=== PATIENT | male | born 1940 | race Hispanic/Latino ===

== ENCOUNTER 2017-02-05 05:25 | Observation (INO) | payer MEDICARE, OTHER ==
[2017-02-05 05:33] VITALS: BMI 31.0
--- NOTE | 2017-02-05 05:52 | ED PDOC ---
Arrival/HPI - General Chief Complaint: Chest Pain Time Seen by Provider: 02/05/17 05:27 Historian: Patient, Spouse - History of Present Illness Narrative History of Present Illness (Text): 02/05/17 05:44 Mr. Zheng is a 76 year old male with a past medical history significant for CAD s/p one SHAGGY placed in 2014, HTN, DM2, and Parkinson's who presents to the [facility] with a chief complaint of continuous non-radiating substernal and left sided chest pressure for 24 hours. Patient states that yesterday morning while on the exercise bike at the [facility], he suddenly felt chest pressure. Patient then stopped exercising but the pressure persisted throughout the day. When patient awoke this morning, the pressure was the worst that it has been so he decided he needed to be evaluated. Patient reports taking two Zantac with no relief. Patient denies fever, chills, headache, changes in his vision, palpitations, SOB , cough, wheezing, abdominal pain, N/V, diarrhea, constipation, burning with urination, rash or any focal weakness. PMD: [employer] Curer: Mitchell Time/Duration: 24 hours Symptom Onset: Sudden Symptom Course: Worsening Quality: Pressure Activities at Onset: Light, Significant Context: Exertion, Bicycle Past Medical History - Provider Review Nursing Documentation Reviewed: Yes - Travel History Have you recently traveled outside [place] w/in the past 3 mons?: No - Past History Past History: Non-Contributing - Infectious Disease Hx of Infectious Diseases: None - Tetanus Immunization Tetanus Immunization: Unknown - Cardiac Hx Hypertension: Yes Hx Pacemaker: No - Pulmonary Hx Respiratory Disorders: No - Neurological Hx Neurological Disorder: No Hx Paralysis: No - HEENT Hx HEENT Disorder: No - Renal Hx Renal Disorder: No - Endocrine/Metabolic Hx Endocrine Disorders: No - Hematological/Oncological Hx Blood Disorders: No Hx Blood Transfusions: No - Integumentary Hx Dermatological Disorder: No - Musculoskeletal/Rheumatological Hx Musculoskeletal Disorders: Yes - Gastrointestinal Hx Gastrointestinal Disorders: No - Genitourinary/Gynecological Hx Genitourinary Disorders: No - Psychiatric Hx Psychophysiologic Disorder: No Hx Emotional Abuse: No Hx Physical Abuse: No Hx Substance Use: No - Surgical History Hx Coronary Stent: Yes (10/2014) - Anesthesia Hx Anesthesia Reactions: No Hx Malignant Hyperthermia: No - Suicidal Assessment Feels Threatened In Home Enviroment: No Family/Social History - Physician Review Nursing Documentation Reviewed: Yes Family/Social History: No Known Family HX Smoking Status: Never Smoked Hx Alcohol Use: No Hx Substance Use: No Hx Substance Use Treatment: No Allergies/Home Meds Allergies/Adverse Reactions: Allergies No Known Allergies Allergy (Verified 02/05/17 05:32) Home Medications: Home Meds Medication Instructions Recorded Confirmed Sitagliptin Phosphate [Januvia] 100 mg PO QPM 01/19/13 02/05/17 Azlect 1 mg PO QAM 10/25/14 02/05/17 Carbidopa/Levodopa 1 tab PO TID 10/25/14 02/05/17 [Carbidopa-Levodopa 10-100 Tab] Ezetimibe/Simvastatin [Vytorin 1 tab PO QPM 10/25/14 02/05/17 10-20 mg Tablet] Furosemide [Lasix] 20 mg PO QAM 10/25/14 02/05/17 Glimepiride [amaRYL] 4 mg PO DAILY 02/05/17 02/05/17 metFORMIN [glucOPHAGE] 500 mg PO DAILY 02/05/17 02/05/17 Review of Systems - Physician Review All systems were reviewed & negative as marked: Yes - Review of Systems Constitutional: Normal. absent: Fevers, Night Sweats Eyes: Normal. absent: Vision Changes ENT: Normal Respiratory: Normal. absent: SOB, Cough, Wheezing Cardiovascular: Chest Pain (Described as non-radiating substernal chest pressure ). absent: Normal, Palpitations, Edema, Syncope Gastrointestinal: Normal. absent: Abdominal Pain, Constipation, Diarrhea, Nausea, Vomiting Genitourinary Male: Normal. absent: Dysuria Musculoskeletal: Normal. absent: Back Pain, Neck Pain Skin: Normal. absent: Rash Neurological: Normal. absent: Headache, Focal Weakness Endocrine: Normal Hemo/Lymphatic: Normal Psychiatric: Normal Physical Exam Vital Signs Reviewed: Yes Vital Signs Temp Pulse Resp BP Pulse Ox 02/05/17 07:13 98.9 F 65 17 137/83 98 02/05/17 05:33 98.4 F 70 18 166/84 H Temperature: Afebrile Blood Pressure: Hypertensive Pulse: Regular Respiratory Rate: Normal Appearance: Positive for: Well-Appearing, Non-Toxic, Comfortable Pain Distress: None Mental Status: Positive for: Alert and Oriented X 3 - Systems Exam Head: Present: Atraumatic, Normocephalic Pupils: Present: PERRL Extroacular Muscles: Present: EOMI Conjunctiva: Present: Normal Mouth: Present: Moist Mucous Membranes Neck: Present: Normal Range of Motion, Trachea Midline. No: Meningeal Signs, MIDLINE TENDERNESS, Paraspinal Tenderness, JVD, Lymphadenopathy Respiratory/Chest: Present: Clear to Auscultation, Good Air Exchange. No: Respiratory Distress, Accessory Muscle Use, Wheezes, Decreased Breath Sounds, Rales, Retracting, Rhonchi, Tachypneic, Tender to Palpation Cardiovascular: Present: Regular Rate and Rhythm, Murmurs (Grade 2 systolic murmur), Normal S1, S2, Peripheal Pulses Present. No: Irregular Rhythm, Tachycardic, Bradycardic, Rub, Gallop, Muffled Abdomen: Present: Normal Bowel Sounds. No: Tenderness, Distention, Peritoneal Signs, Rebound, Guarding Back: Present: Normal Inspection. No: CVA Tenderness, Midline Tenderness, Paraspinal Tenderness Upper Extremity: Present: Normal Inspection, Normal ROM, NORMAL PULSES, Capillary Refill < 2s. No: Cyanosis, Edema Lower Extremity: Present: Normal Inspection, NORMAL PULSES, Normal ROM, Capillary Refill < 2 s. No: Edema, CALF TENDERNESS Neurological: Present: GCS=15, CN II-XII Intact, Speech Normal Skin: Present: Warm, Dry, Normal Color. No: Rashes Lymphatic: No: Cervical Adenopathy Psychiatric: Present: Alert, Oriented x 3, Normal Insight, Normal Concentration Medical Decision Making ED Course and Treatment: 02/05/17 05:56 Impression: 76 year old male with a past medical history significant for CAD s/ p one SHAGGY placed in 2014, HTN, DM2, and Parkinson's who presents to the [facility] with a chief complaint of continuous non-radiating substernal and left sided chest pressure for 24 hours Plan: -CBC, CMP, Cardiac Iso's, PT/INR, aPTT, Magnesium and UA pending -EKG -Chest X-Ray -ASA 325mg PO Prior Visits: All results and reports from previous visits reviewed. 10/2014-Patient was here for cardiac cath with Dr. Pitt - Lab Interpretations Lab Results: 02/05/17 05:35 02/05/17 05:35 Lab Results 02/05/17 05:35: Sodium 142, Potassium 4.5, Chloride 103, Carbon Dioxide 31, Anion Gap 13, BUN 13, Creatinine 0.8, Est GFR ( Amer) > 60, Est GFR (Non- Af Amer) > 60, Random Glucose 120 H, Calcium 9.3, Magnesium 1.9, Total Bilirubin 1.4 H, AST 25, ALT 22, Alkaline Phosphatase 64, Lactate Dehydrogenase 374, Total Creatine Kinase 62, Troponin I 0.02 D, Total Protein 6.9, Albumin 4.1, Globulin 2.8, Albumin/Globulin Ratio 1.5 02/05/17 05:35: PT 11.3, INR 1.05, APTT 28.7 02/05/17 05:35: WBC 10.6, RBC 4.85, Hgb 14.7, Hct 42.9, MCV 88.5, MCH 30.3, MCHC 34.3, RDW 13.9, Plt Count 256, MPV 10.1, Gran % 62.2, Lymph % (Auto) 24.3, Pondera % (Auto) 12.6 H, Eos % (Auto) 0.6 L, Baso % (Auto) 0.3, Gran # 6.57 H, Lymph # 2.6, Pondera # 1.3 H, Eos # 0.1, Baso # 0.03 I have reviewed the lab results: Yes - RAD Interpretation Radiology Orders: 02/05/17 05:42 CHEST PORTABLE [RAD] Stat - EKG Interpretation Interpreted by ED Physician: Yes Type: 12 lead EKG - Medication Orders Current Medication Orders: Discontinued Medications Acetaminophen (Tylenol 325mg Tab) 650 mg PO ONCE ONE Stop: 02/05/17 23:15 Last Admin: 02/05/17 23:41 Dose: 650 mg [facility] Pain/Vitals Document 02/05/17 23:41 CO (Rec: 02/05/17 23:41 CO [id number]) Presence of Pain Presence of Pain Yes Re-Assess: [facility] Pain/Vitals Document 02/06/17 00:41 CO (Rec: 02/06/17 01:03 CO [id number]) Presence of Pain Presence of Pain Yes Amiodarone HCl (Cordarone) 200 mg PO DAILY [facility] Amiodarone HCl (Cordarone) 400 mg PO TID [facility] Stop: 02/06/17 23:59 Last Admin: 02/06/17 09:18 Dose: 400 mg MAR Pulse and Blood Pressure Document 02/06/17 09:18 MM (Rec: 02/06/17 09:18 MM [id number]) Pulse Pulse Rate (60-90) 60 Blood Pressure Blood Pressure (100/60-150/90) 111/72 Apixaban (Eliquis) 5 mg PO BID [facility] PRN Reason: Protocol Last Admin: 02/06/17 09:16 Dose: 5 mg Aspirin (Aspirin) 325 mg PO STAT STA Stop: 02/05/17 06:00 Last Admin: 02/05/17 06:07 Dose: 325 mg Aspirin (Ecotrin) 81 mg PO DAILY [facility] Last Admin: 02/05/17 12:54 Dose: 81 mg Carbidopa/Levodopa (Sinemet ) 1 tab PO TID [facility] Last Admin: 02/06/17 09:16 Dose: 1 tab Clopidogrel Bisulfate (Plavix) 75 mg PO DAILY [facility] Last Admin: 02/06/17 09:17 Dose: 75 mg Enoxaparin Sodium (Lovenox) 90 mg SC STAT STA PRN Reason: Protocol Stop: 02/05/17 06:56 Last Admin: 02/05/17 07:12 Dose: 90 mg Subcutaneous Administrations Document 02/05/17 07:12 [email or web address] (Rec: 02/05/17 07:12 [email or web address] [facility]- [id number]) Injection Site MAR Injection Site Left Abdomen Charges for Administration # of Subcutaneous Administrations 1 Enoxaparin Sodium (Lovenox) 90 mg SC Q12H TAMI PRN Reason: Protocol Stop: 02/05/17 23:59 Last Admin: 02/05/17 18:59 Dose: 90 mg Subcutaneous Administrations Document 02/05/17 18:59 J (Rec: 02/05/17 18:59 [id number]) Injection Site MAR Injection Site Right Abdomen Charges for Administration # of Subcutaneous Administrations 1 Furosemide (Lasix) 20 mg PO QAM [facility] Last Admin: 02/06/17 09:16 Dose: 20 mg MAR Blood Pressure Document 02/06/17 09:16 MM (Rec: 02/06/17 09:16 MM [id number]) Blood Pressure Blood Pressure (100/60-150/90) 111/72 Glimepiride (Amaryl) 4 mg PO DAILY [facility] Last Admin: 02/06/17 09:20 Dose: 4 mg Amiodarone HCl/Dextrose (Nexterone 150 Mg In Dextrose 100 Ml (Premix)) 150 mg in 100 mls @ 600 mls/hr IVPB ONCE ONE PRN Reason: Protocol Stop: 02/05/17 10:30 Last Admin: 02/05/17 13:04 Dose: 600 mls/hr eMAR Start Stop Document 02/05/17 13:04 NEHEMIAS (Rec: 02/05/17 13:06 [facility] [id number]) Intravenous Solution Start Date 02/05/17 Start Time 13:06 End Date 02/05/17 End time 13:30 Total Infusion Time 24 Insulin Human Regular (Humulin R Low) 0 units SC ACHS TAMI PRN Reason: Protocol Last Admin: 02/06/17 12:22 Dose: Not Given Non-Admin Reason: Blood Sugar Parameter MAR Blood Glucose Document 02/06/17 12:22 MM (Rec: 02/06/17 12:23 MM [id number]) Blood Glucose Finger Stick Blood Glucose (70-120) 151 Metoprolol Tartrate (Lopressor) 50 mg PO BID [facility] Last Admin: 02/06/17 09:17 Dose: 50 mg MAR Pulse and Blood Pressure Document 02/06/17 09:17 MM (Rec: 02/06/17 09:17 MM [id number]) Pulse Pulse Rate (60-90) 60 Blood Pressure Blood Pressure (100/60-150/90) 111/72 (Azilect 1 Mg) ( (Home Med)) 1 mg PO QAM [facility] Last Admin: 02/06/17 10:00 Dose: Sitagliptin Phosphate (Januvia) 100 mg PO QPM [facility] Last Admin: 02/05/17 17:34 Dose: 100 mg Disposition/Present on Arrival - Present on Arrival Any Indicators Present on Arrival: No History of DVT/PE: No History of Uncontrolled Diabetes: No Urinary Catheter: No History of Decub. Ulcer: No History Surgical Site Infection Following: None - Disposition Have Diagnosis and Disposition been Completed?: Yes Diagnosis: Unstable angina pectoris Disposition: HOSPITALIZED Disposition Time: 07:00 Condition: STABLE
[2017-02-05 06:37] LABS: BASO # 0.03 K/mm3 (0.0-2.0); BASO % 0.3 % (0.0-3.0); EOS # 0.1 (0.0-0.7); EOS % 0.6 % (1.5-5.0); GRAN # 6.57 (1.4-6.5); GRAN % 62.2 % (50.0-68.0); HEMATOCRIT 42.9 % (42.0-52.0); LYMPH # 2.6 (1.2-3.4); LYMPH % 24.3 % (22.0-35.0); MEAN CELL VOLUME 88.5 fl (80.0-105.0); MEAN CORPUSCULAR HEMOGLOBIN 30.3 pg (25.0-35.0); MEAN CORPUSCULAR HGB CONC 34.3 g/dl (31.0-37.0); MEAN PLATELET VOLUME 10.1 fl (7.0-11.0); MONO # 1.3 (0.1-0.6); MONO % 12.6 % (1.0-6.0); RED CELL DISTRIBUTION WIDTH 13.9 % (11.5-14.5); WHITE BLOOD COUNT 10.6 10^3/ul (4.5-11.0)
[2017-02-05 06:40] LABS: ALB/GLOB RATIO 1.5 (1.1-1.8); ALKALINE PHOSPHATASE 64 U/L (38-126); ALT/SGPT 22 U/L (7-56); AST/SGOT 25 U/L (17-59); BILIRUBIN,TOTAL 1.4 mg/dL (0.2-1.3); BLOOD UREA NITROGEN 13 mg/dL (7-21); CALCIUM 9.3 mg/dL (8.4-10.5); CARBON DIOXIDE 31 mmol/L (21-33); CHLORIDE 103 mmol/L (98-107); GFR AFRICAN-AMERICAN > 60; GLUCOSE,RANDOM 120 mg/dL (70-110); MAGNESIUM 1.9 mg/dL (1.7-2.2); POTASSIUM 4.5 mmol/L (3.6-5.0); SODIUM 142 mmol/L (132-148); TOTAL PROTEIN 6.9 g/dL (5.8-8.3)
[2017-02-05] MEDS ORDERED: Enoxaparin 100 mg Syringe SC STA (06:55)
[2017-02-05 07:01] LABS: INR 1.05 (0.93-1.08); PARTIAL THROMBOPLASTIN TIME 28.7 Seconds (23.7-30.8)
[2017-02-05 07:09] LABS: TROPONIN I 0.02 ng/mL
--- NOTE | 2017-02-05 08:10 | RAD ---
HISTORY: cp COMPARISON: 01/08/2013 7:35 a.m. FINDINGS: LUNGS: Low-normal lung volumes. Bilateral upper lobe subcentimeter opacities - possible granulomatous changes. No interval consolidation PLEURA: No significant pleural effusion identified, no pneumothorax apparent. Right hemidiaphragmatic ossified pleural plaques. Some of the additional a amorphous opacities in the upper lobes may represent pleural-based opacities as well CARDIOVASCULAR: Mild cardiomegaly. Mild central pulmonary venous congestion - - shallow lung volumes resulting in crowding also likely contributory OSSEOUS STRUCTURES: No significant abnormalities. VISUALIZED UPPER ABDOMEN: Normal. OTHER FINDINGS: None. IMPRESSION: Cardiomegaly and mild pulmonary venous congestion. No consolidation. Right joaquim diaphragmatic calcified pleural plaque. Upper lobe granulomatous and/or pleural plaques also probable.
--- NOTE | 2017-02-05 09:41 | HP ---
CHIEF COMPLAINT AND HISTORY OF PRESENT ILLNESS: This is a 76-year-old male who has come in to the hospital with a past medical history of coronary artery disease and stent placed in 2014, hypertension, diabetes, and Parkinson's, complaining of chest pain. He said the chest pain started last night it is substernal, it is a heaviness that he has had. He rates it as about 5/10. He denies any radiation. He denies any nausea or vomiting. No back pain and no headaches or dizziness. No shortness of breath. He states he had taken Zantac last night and again this morning with no significant relief. He has no fevers or chills. No dysuria or frequency and no nocturia. REVIEW OF SYMPTOMS: All other review of systems are within normal limits except as mentioned. ALLERGIES: NO KNOWN DRUG ALLERGIES. HOME MEDICATIONS: Januvia, Azilect, carbidopa and levodopa, Vytorin, and Lasix. PAST MEDICAL HISTORY: As above: 1. Coronary artery disease with stent in 10/2014. 2. Hypertension. 3. Diabetes type 2. 4. Moderate aortic stenosis. SOCIAL HISTORY: He smoked, but quit about years ago. Denies alcohol use or substance abuse. PAST SURGICAL HISTORY: Left shoulder surgery and right knee surgery. PHYSICAL EXAMINATION VITAL SIGNS: He has a temperature of 98.9, pulse is 65, blood pressure of 137/83, respirations are 17, and O2 saturation is 98%. Height is 5 feet 7 inches, weight is 198 pounds, and BMI is 31.0. GENERAL: The patient lying in bed, uncomfortable, and in no acute distress. HEENT: Atraumatic and normocephalic. Anicteric sclerae. Moist mucosa. Hartline conjunctivae. No oral lesions. NECK: No JVD, anterior and posterior adenopathy, thyromegaly, or bruits. CARDIOVASCULAR: S1 and S2 regular. No murmur, rubs, or gallop. LUNGS: Clear to auscultation bilaterally. No wheezes, rales, or rhonchi. ABDOMEN: Bowel sounds are positive. Soft, nontender and nondistended. No hepatosplenomegaly. No rebound and no guarding EXTREMITIES: No cyanosis, clubbing, or edema. NEUROLOGIC: No facial asymmetry. Tongue is midline. No uvula deviation. Power is 5/5 upper extremity and lower extremity. Sensation intact in upper extremity and lower extremity. PSYCHIATRIC: He is awake, alert and oriented x3. No anxiety or depression. He has normal affect. GENITOURINARY: No CVA tenderness. VASCULAR: 2+ pulses in the carotid pulses and pedal pulses. SKIN: No erythema or nodules SPINE: Shows normal curvature. EXTREMITIES: No Cyanosis and clubbing, no edema. LABORATORY DATA: Labs have been reviewed white count of 10.6 and hemoglobin of 14.7. Chemistry shows a creatinine of 0.8 and albumin is 4.1, INR is 1.05. DIAGNOSTIC DATA: His chest x-ray shows no infiltrates. ASSESSMENT: 1. Chest pain with A flutter 2. Diabetes type 2. 3. Parkinson's disease. 4. History of coronary artery disease with stent. 5. Hypertension. 6. Aortic stenosis. 7. Obese with body mass index of 31. PLAN: The patient is going to be admitted to the hospital. He has an initial troponin that has been negative, I will repeat the patient's troponin. We will need to rule out ischemia because of the history of coronary artery disease and stent. He states his last stress test was about two years ago. The patient is going to continue his diabetes medication with Januvia and Amaryl. I will hold his metformin in case he needs a cardiac cath. I will place him on insulin sliding scale. He is going to continue his aspirin and Plavix. Now, he is placed on metoprolol. We will get consultation with Dr. Pitt who is his door liner. The patient will be placed on telemetry monitoring. I will give him a diabetic diet. We will repeat his troponins later today. I think the patient may need a repeat stress test. Rahul Keneny MD [facility]
[2017-02-05] MEDS ORDERED: Aminophylline 25 mg/ml Inj ONE (09:50)
[2017-02-05] MEDS ORDERED: Amiodarone 150 mg/D5W 100 ml 150 MG/100 ML BAG IVPB ONE (10:21)
[2017-02-05] MEDS: Insulin Reg-LOW-Coverage SC SCH ×3 (11:14→21:46)
[2017-02-05] MEDS: AZILECT 1 MG PO SCH (13:21)
--- NOTE | 2017-02-05 16:26 | CARD ---
APPROVED REPORT Protocol: LEXISCAN Test Type: Lexiscan Sestamibi Stress Test Attending Physician: Dr. Endy Medrano Referring Physician: Dr. Rahul Kenney Test Indications: Chest Pain Height:5 ft 7 in Weight:215lbs Medications: Amaryl,Aspirin,Januvia,Lasix, Plavix,Sinemet,Regular Insulin,Azlect Medical History: 76 y/o male. Hx of 1 stent,diabetic,hypertension, ex smoker,Parkinsons. Target HR: 142 bpm Resting ECG: Atrial Fibrillation Moderate Rate. Resting Heart Rate: 72 bpm Resting Blood Pressure: 160/84mmHg Submaximum (85%): 121 bpm PROCEDURE Pharmacologic stress testing was performed using 0.4mg per 5ml of regadenoson given intravenously over 7-10 seconds. POST EXERCISE Reason for Termination: Protocol completed Target HR: No Max HR: 73 bpm 67% of Maximum Predicted HR: 142 bpm Exercise duration: 00:30 min:sec, 0 Stage Exercise capacity: 1.0METs Max Blood Pressure: 160/84mmHg Blood Pressure response to exercise: resting hypertension - appropriate response Heart Rate response to exercise: appropriate Chest Pain: Yes, Lincoln Slight Tightness in Chest. Angina index: 0 Arrhythmia: Yes, Atrial Fibrillation as on Resting EKG. ST Change: No, none Deviation: 0 mm TEST SUMMARY [id number]. INFUSIONDOSE 100:[id number]/.0. [id number]/82.7. INTERPRETATION Stress EKG Conclusion: IV LEXISCAN NUCLEAR STRESS TEST DURING WHICH PATIENT FELT SLIGHT TIGHTNESS IN CHEST. NO ST-T CHANGES SEEN. NUCLEAR SCAN REPORT PENDING. Signed by Endy Medrano Electronically Approved: 02/05/2017 13:06:26 EXAM: Myocardial Perfusion REST/STRESS Stress Test Type: Pharmacologic Imaging Protocol Rest Spect myocardial perfusion imaging was performed in supine position 50 minutes following the injection of 10.5 mCi of Tc-99 Myoview. At peak stress, the patient was injected intravenously with 30.9mCi of Tc-99 tetrofosmin after an infusion time of 0 minutes and 10 seconds. Gated Stress Spect was performed 75 minutes after intravenous Tc-99 Myoview injection. The images were gated to evaluate regional wall motion and calculate ventricular ejection fraction.Images were reconstructed using backfilter projection method in short horizontal and verticle long axis. Spect slices were generated. LV Perfusion The quality of the study is good. The left ventricle is mildly enlarged in size. The right ventricle is unremarkable. The lung uptake is normal. The distribution of tracer reveals mildly to moderately decreased perfusion in the apical and inferior valdez on the stress study. The remainder of the LV myocardium is unremarkable. The rest myocardial perfusion study shows no significant change. Wall Motion Wall motion study shows good contractility of the left ventricle. LVEF = 53%. Conclusion 1. Probably negative SPECT myocardial perfusion study. 2. Fixed, apical and inferior defects are probably due to diaphrgmatic attenuation and/or previous myocardial injury. 3. Normal gated wall motion and thicknening of the left ventricle. 4. In comaprison with the last study of 05/01/2015, there is no significant change.
[2017-02-05 17:26] VITALS: RESP 20
--- NOTE | 2017-02-05 18:18 | CARD ---
APPROVED REPORT EXAM: Two-dimensional and M-mode echocardiogram with Doppler and color Doppler. INDICATION EVALUATE LVFX 2D DIMENSIONS Left Atrium (2D)5.6 (1.6-4.0cm)IVSd1.4 (0.7-1.1cm) LVDd5.1 (3.9-5.9cm)LVOT Diameter2.0 (1.8-2.4cm) PWd1.2 (0.7-1.1cm)LVDs3.5 (2.5-4.0cm) FS (%) 31.8 %LVEF (%)59.6 (>50%) M-Mode DIMENSIONS Aortic Root3.20 (2.2-3.7cm)Aortic Cusp Exc.0.90 (1.5-2.0cm) Aortic Valve AoV Peak Opcrusvy684.0cm/sAoV VTI89.2cmAO Peak GR.107mmHg LVOT Peak Hgnueexf36.0cm/sLVOT VTI19.80cmAO Mean GR.45mmHg SUZETTE (VMAX)0.40js4TZU (VTI)0.45ir1WV P 1/2 Veqe699mp Mitral Valve E/A ratio0.0 TDI E/Lateral E'0.0E/Medial E'0.0 Pulmonary Valve PV Peak Vrhhcaus47.6cm/sPV Peak Grad.3mmHg Tricuspid Valve TR Peak Htbbzvnl190aa/sRAP [id number] Peak Gr.30mmHg [id number] LEFT VENTRICLE The left ventricle is normal size. There is moderate concentric left ventricular hypertrophy. The left ventricular function is normal.EF-55-60% There is normal LV segmental wall motion. A fib No left ventricle thrombus noted on this study. There is no ventricular septal defect visualized. There is no left ventricular aneurysm. There is no mass noted in the left ventricle. RIGHT VENTRICLE The right ventricle is normal size. There is normal right ventricular wall thickness. The right ventricular systolic function is normal. ATRIA The left atrium is moderately dilated. The right atrium is mildly dilated. The interatrial septum is intact with no evidence for an atrial septal defect. AORTIC VALVE The aortic valve is calcified and displays decreased opening. There is mild aortic regurgitation. There is moderate to severe valvular aortic stenosis. There is no aortic valvular vegetation. MITRAL VALVE The mitral valve is thickened but opens well. Mitral regurgitation is mild. There is no mitral valve stenosis. There is no evidence of mitral valve prolapse. TRICUSPID VALVE The tricuspid valve leaflets are thickened , but open well. There is mild tricuspid regurgitation. There is no tricuspid valve stenosis. There is no tricuspid valve prolapse or vegetation. PULMONIC VALVE The pulmonic valve is not well visualized. There is no pulmonic valvular regurgitation. There is no pulmonic valvular stenosis. GREAT VESSELS The aortic root is normal in size. The ascending aorta is normal in size. The pulmonary artery is normal. The IVC is normal in size and collapses >50% with inspiration. PERICARDIAL EFFUSION There is no pleural effusion. There is no pericardial effusion. <Conclusion> The left ventricle is normal size. There is moderate concentric left ventricular hypertrophy. The left ventricular function is normal.EF-55-60% There is mild aortic regurgitation. There is moderate to severe valvular aortic stenosis. Mitral regurgitation is mild. There is mild tricuspid regurgitation. Consider KAMRAN to assess As severity.
[2017-02-05] MEDS ORDERED: Enoxaparin 100 mg Syringe SC SCH (19:00)
--- NOTE | 2017-02-05 21:34 | CARD ---
APPROVED REPORT EKG Measurement Heart [id number] <Conclusion> Atrial flutter with variable AV block Abnormal ECG
--- NOTE | 2017-02-05 21:34 | CARD ---
APPROVED REPORT EKG Measurement Heart [id number] <Conclusion> Atrial flutter with variable AV block Abnormal ECG
--- NOTE | 2017-02-06 00:55 | CP.PCM.PN ---
Subjective - Date & Time of Evaluation Date of Evaluation: 02/05/17 Time of Evaluation: 11:20 - Subjective Subjective: pt is c/o generalized abdominal pain , and leg pain, s/p ercp and elevated lft, and lpase. Objective - Vital Signs/Intake and Output Vital Signs (last 24 hours): Temp Pulse Resp BP Pulse Ox 98.4 F 60 20 123/76 100 02/05/17 17:25 02/05/17 22:00 02/05/17 17:25 02/05/17 17:34 02/05/17 08:19 - Medications Medications: Current Medications Amiodarone HCl (Cordarone) 200 mg PO DAILY [facility] Amiodarone HCl (Cordarone) 400 mg PO TID [facility] Stop: 02/06/17 23:59 Last Admin: 02/05/17 17:27 Dose: 400 mg Apixaban (Eliquis) 5 mg PO BID [facility] PRN Reason: Protocol Carbidopa/Levodopa (Sinemet ) 1 tab PO TID [facility] Last Admin: 02/05/17 17:34 Dose: 1 tab Clopidogrel Bisulfate (Plavix) 75 mg PO DAILY [facility] Last Admin: 02/05/17 12:54 Dose: 75 mg Furosemide (Lasix) 20 mg PO QAM [facility] Last Admin: 02/05/17 14:30 Dose: 20 mg Glimepiride (Amaryl) 4 mg PO DAILY [facility] Last Admin: 02/05/17 12:54 Dose: 4 mg Insulin Human Regular (Humulin R Low) 0 units SC ACHS [facility] PRN Reason: Protocol Last Admin: 02/05/17 21:46 Dose: Not Given Metoprolol Tartrate (Lopressor) 50 mg PO BID [facility] Last Admin: 02/05/17 17:34 Dose: 50 mg (Azilect 1 Mg) ( (Home Med)) 1 mg PO QAM [facility] Last Admin: 02/05/17 13:21 Dose: Not Given Sitagliptin Phosphate (Januvia) 100 mg PO QPM [facility] Last Admin: 02/05/17 17:34 Dose: 100 mg - Labs Labs: PT 11.3 Seconds (9.9-11.8) 02/05/17 05:35 INR 1.05 (0.93-1.08) 02/05/17 05:35 APTT 28.7 Seconds (23.7-30.8) 02/05/17 05:35 - Constitutional Appears: No Acute Distress - Head Exam Head Exam: NORMOCEPHALIC - Eye Exam Eye Exam: Normal appearance Pupil Exam: PERRL - ENT Exam ENT Exam: Mucous Membranes Moist - Neck Exam Neck Exam: Full ROM - Respiratory Exam Respiratory Exam: Clear to Ausculation Bilateral - Cardiovascular Exam Cardiovascular Exam: RRR, +S1, +S2 - GI/Abdominal Exam GI & Abdominal Exam: Soft, Normal Bowel Sounds - Rectal Exam Rectal Exam: Deferred - Extremities Exam Extremities Exam: Full ROM - Neurological Exam Neurological Exam: Alert, Awake, CN II-XII Intact, Oriented x3 - Psychiatric Exam Psychiatric exam: Anxious - Skin Skin Exam: Dry, Warm Assessment and Plan - Assessment and Plan (Free Text) Assessment: abdominal pain s/p ercp . abnormal lft,s. Plan: dilauded 1 mg x1.
--- NOTE | 2017-02-06 01:00 | CP.PCM.PN ---
Subjective - Date & Time of Evaluation Date of Evaluation: 02/05/17 Time of Evaluation: 20:00 - Subjective Subjective: pt is c/o cp , non radiating states when he lays down he gets pain.pt had stress test which is negative , ist troponine negative Objective - Vital Signs/Intake and Output Vital Signs (last 24 hours): Temp Pulse Resp BP Pulse Ox 98.4 F 60 20 123/76 100 02/05/17 17:25 02/05/17 22:00 02/05/17 17:25 02/05/17 17:34 02/05/17 08:19 - Medications Medications: Current Medications Amiodarone HCl (Cordarone) 200 mg PO DAILY [facility] Amiodarone HCl (Cordarone) 400 mg PO TID [facility] Stop: 02/06/17 23:59 Last Admin: 02/05/17 17:27 Dose: 400 mg Apixaban (Eliquis) 5 mg PO BID [facility] PRN Reason: Protocol Carbidopa/Levodopa (Sinemet ) 1 tab PO TID [facility] Last Admin: 02/05/17 17:34 Dose: 1 tab Clopidogrel Bisulfate (Plavix) 75 mg PO DAILY [facility] 234 [facility]S AT [facility] Last Admin: 02/05/17 12:54 Dose: 75 mg Furosemide (Lasix) 20 mg PO QAM [facility] 234 [facility]S AT [facility] Last Admin: 02/05/17 14:30 Dose: 20 mg Glimepiride (Amaryl) 4 mg PO DAILY [facility] 234 [facility] Last Admin: 02/05/17 12:54 Dose: 4 mg Insulin Human Regular (Humulin R Low) 0 units SC ACHS [facility] 234 [facility]S [facility] PRN Reason: Protocol Last Admin: 02/05/17 21:46 Dose: Not Given Metoprolol Tartrate (Lopressor) 50 mg PO BID [facility] 234 [facility]S [facility] Last Admin: 02/05/17 17:34 Dose: 50 mg (Azilect 1 Mg) ( (Home Med)) 1 mg PO QAM [facility] 234 [facility]S [facility] Last Admin: 02/05/17 13:21 Dose: Not Given Sitagliptin Phosphate (Januvia) 100 mg PO QPM [facility] 234 [facility]S [facility] Last Admin: 02/05/17 17:34 Dose: 100 mg - Labs Labs: PT 11.3 Seconds (9.9-11.8) 02/05/17 05:35 INR 1.05 (0.93-1.08) 02/05/17 05:35 APTT 28.7 Seconds (23.7-30.8) 02/05/17 05:35 - Constitutional Appears: No Acute Distress - Head Exam Head Exam: NORMOCEPHALIC - Eye Exam Eye Exam: Normal appearance Pupil Exam: PERRL - ENT Exam ENT Exam: Mucous Membranes Moist - Neck Exam Neck Exam: Full ROM - Respiratory Exam Respiratory Exam: Clear to Ausculation Bilateral - Cardiovascular Exam Cardiovascular Exam: RRR, +S1, +S2 - Rectal Exam Rectal Exam: Deferred - Extremities Exam Extremities Exam: Full ROM - Neurological Exam Neurological Exam: Alert, Awake, CN II-XII Intact, Oriented x3 - Psychiatric Exam Psychiatric exam: Normal Affect - Skin Skin Exam: Warm Assessment and Plan - Assessment and Plan (Free Text) Assessment: chest wall pain. Plan: tylenol 650 mg x1,cardiac iso.
--- NOTE | 2017-02-06 01:06 | CP.PCM.PN ---
Subjective - Date & Time of Evaluation Date of Evaluation: 02/05/17 Time of Evaluation: 20:00 - Subjective Subjective: pt is c/o cp , non radiating pt states when he lays down he gets pain , pt had negative stress test today. Objective - Vital Signs/Intake and Output Vital Signs (last 24 hours): Temp Pulse Resp BP Pulse Ox 98.2 F 59 L 20 116/62 97 02/06/17 00:01 02/06/17 00:01 02/06/17 00:01 02/06/17 00:01 02/06/17 00:01 - Medications Medications: Current Medications Amiodarone HCl (Cordarone) 200 mg PO DAILY [facility] Amiodarone HCl (Cordarone) 400 mg PO TID [facility] Stop: 02/06/17 23:59 Last Admin: 02/05/17 17:27 Dose: 400 mg Apixaban (Eliquis) 5 mg PO BID [facility] PRN Reason: Protocol Carbidopa/Levodopa (Sinemet ) 1 tab PO TID [facility] Last Admin: 02/05/17 17:34 Dose: 1 tab Clopidogrel Bisulfate (Plavix) 75 mg PO DAILY [facility] Last Admin: 02/05/17 12:54 Dose: 75 mg Furosemide (Lasix) 20 mg PO QAM [facility] Last Admin: 02/05/17 14:30 Dose: 20 mg Glimepiride (Amaryl) 4 mg PO DAILY [facility] Last Admin: 02/05/17 12:54 Dose: 4 mg Insulin Human Regular (Humulin R Low) 0 units SC ACHS [facility] PRN Reason: Protocol Last Admin: 02/05/17 21:46 Dose: Not Given Metoprolol Tartrate (Lopressor) 50 mg PO BID [facility] Last Admin: 02/05/17 17:34 Dose: 50 mg (Azilect 1 Mg) ( (Home Med)) 1 mg PO QAM [facility] Last Admin: 02/05/17 13:21 Dose: Not Given Sitagliptin Phosphate (Januvia) 100 mg PO QPM [facility] Last Admin: 02/05/17 17:34 Dose: 100 mg - Labs Labs: PT 11.3 Seconds (9.9-11.8) 02/05/17 05:35 INR 1.05 (0.93-1.08) 02/05/17 05:35 APTT 28.7 Seconds (23.7-30.8) 02/05/17 05:35 - Constitutional Appears: No Acute Distress - Head Exam Head Exam: NORMOCEPHALIC - Eye Exam Eye Exam: Normal appearance - ENT Exam ENT Exam: Mucous Membranes Moist - Neck Exam Neck Exam: Full ROM, Normal Inspection - Respiratory Exam Respiratory Exam: NORMAL BREATHING PATTERN - Cardiovascular Exam Cardiovascular Exam: RRR, +S1, +S2 - Rectal Exam Rectal Exam: Deferred - Extremities Exam Extremities Exam: Full ROM - Neurological Exam Neurological Exam: Alert, Awake, CN II-XII Intact, Oriented x3 - Psychiatric Exam Psychiatric exam: Normal Affect - Skin Skin Exam: Dry, Warm Assessment and Plan - Assessment and Plan (Free Text) Assessment: chest pain. ? musculoskeletal. hx of parkinsonism. Plan: tylenol 650mg x1
[2017-02-06 06:24] LABS: BASO # 0.02 K/mm3 (0.0-2.0); BASO % 0.2 % (0.0-3.0); EOS % 0.2 % (1.5-5.0); GRAN # 8.92 (1.4-6.5); HEMATOCRIT 39.4 % (42.0-52.0); LYMPH # 1.8 (1.2-3.4); LYMPH % 15.3 % (22.0-35.0); MEAN CELL VOLUME 88.3 fl (80.0-105.0); MONO # 1.2 (0.1-0.6); MONO % 10.3 % (1.0-6.0); RED CELL DISTRIBUTION WIDTH 13.7 % (11.5-14.5)
[2017-02-06 06:37] LABS: ALB/GLOB RATIO 1.4 (1.1-1.8); ALKALINE PHOSPHATASE 60 U/L (38-126); ALT/SGPT 25 U/L (7-56); AST/SGOT 26 U/L (17-59); BILIRUBIN,TOTAL 1.2 mg/dL (0.2-1.3); BLOOD UREA NITROGEN 16 mg/dL (7-21); CALCIUM 9.2 mg/dL (8.4-10.5); CARBON DIOXIDE 31 mmol/L (21-33); CHLORIDE 101 mmol/L (98-107); CHOLESTEROL 135 mg/dL (130-200); GFR AFRICAN-AMERICAN > 60; GLUCOSE,RANDOM 131 mg/dL (70-110); MAGNESIUM 2.1 mg/dL (1.7-2.2); PHOSPHOROUS 2.9 mg/dL (2.5-4.5); POTASSIUM 4.2 mmol/L (3.6-5.0); SODIUM 140 mmol/L (132-148); TOTAL PROTEIN 6.9 g/dL (5.8-8.3)
[2017-02-06 07:22] VITALS: TEMP 98.9; O2SAT 95
[2017-02-06] MEDS: Insulin Reg-LOW-Coverage SC SCH ×2 (07:40→12:22)
--- NOTE | 2017-02-06 08:19 | CON ---
DATE: 02/05/2017 CHIEF COMPLAINT: Admitted due to chest pain, new-onset atrial flutter, history of coronary artery disease status post stent. BRIEF CLINICAL COURSE: This is a 76-year-old male with a past medical history significant for diabetes, hypertension, hyperlipidemia, Parkinson's disease, abnormal stress test, history of coronary artery disease, status post PTCA of mid LAD on 10/27/2014, came in with a complaint of shortness of breath, a little heaviness in the chest since yesterday. Denies any chest pain, but feels heaviness in the chest. PAST MEDICAL HISTORY: Significant for Parkinson's disease, diabetes, hypertension, hyperlipidemia. PREVIOUS CARDIAC WORKUP: As follows: History of cardiac catheterization on 10/27/2014 that showed multivessel CAD, critical disease and LAD disease, RCA nondominant, small, 100% occluded, OM3 80 to 90 small caliber less than 1.5 mm vessels, not suitable for PCI. Normal LV function, ejection fraction 55%, EDP in the range of 20 to 25, 20 mm gradient on pullback, consistent with [id number] aortic stenosis, and followup echo to monitor aortic stenosis is recommended. The patient had last stress test on 05/01/2015 that showed normal wall motion, ejection fraction 56%, when compared to 11/09/2014 significant improvement in the wall motion noted. SOCIAL HISTORY: Quit smoking 7 years ago. Used to smoke half a pack a day. No history of alcohol abuse. No history of substance abuse. PAST SURGICAL HISTORY: Significant for left surgery and right knee surgery. REVIEW OF SYSTEMS: As per HPI. CURRENT MEDICATIONS: The patient at home was taking metformin, Januvia, glimepiride, Lasix, Vytorin 10/, Plavix, and aspirin. ALLERGIES: NO KNOWN DRUG ALLERGIES. PHYSICAL EXAMINATION: VITAL SIGNS: Temperature afebrile, heart rate 64, blood pressure 140/87. HEENT: PERRLA. Extraocular muscles intact. NECK: Supple. No carotid bruits or thyromegaly. CHEST: Clear to auscultation. HEART: S1 and S2 regular. ABDOMEN: Soft. EXTREMITIES: Clubbing and cyanosis negative. LABORATORY DATA: Blood workup as follows: WBC 10.6, hemoglobin 14, hematocrit 42.9, platelet count 256. Chemistry shows sodium 140, potassium 4.2, chloride 103, carbon dioxide 31, anion gap of 13. Troponin 0.02. EKG shows atrial flutter, 3:1 conduction, no acute ST-T changes noted. IMPRESSION: New-onset atrial flutter, chest pain, rule out right coronary artery disease, unstable angina, diabetes, hypertension, hyperlipidemia, Parkinson's disease, history of shoulder surgery, history of knee surgery, last stress test in 04/2015. RECOMMENDATIONS: Follow up CPK, troponins. We will get echo, stress test, lipid profile, TSH, hemoglobin A1c. We will start Lovenox and give a dose of IV amiodarone, the patient converted. If the patient does not convert, consider KAMRAN cardioversion. Interim, we will put Lovenox because should the patient need cardiac catheterization if the stress test is abnormal. If the stress test is negative, we will put back on Eliquis. We will follow with you. Thank you Dr. Kenney for providing us the opportunity in taking care of the patient, Nickolas Zheng. Endy Pitt MD
[2017-02-06 09:21] VITALS: BP 111/72
[2017-02-06] MEDS: AZILECT 1 MG PO SCH (10:00)
[2017-02-06 11:42] VITALS: PULSE 62
--- NOTE | 2017-02-06 13:34 | PN ---
DATE: 02/06/2017 REASON FOR CONSULTATION AND FOLLOWUP: Admitted with chest pain, new-onset atrial fib/flutter, coronary artery disease status post stent. Denies any chest pain, shortness of breath, or any palpitation. PHYSICAL EXAMINATION: VITAL SIGNS: Temperature afebrile, heart rate 60, blood pressure 111/72. HEENT: PERRLA. Extraocular muscles intact. NECK: Supple. No carotid bruits or thyromegaly. CHEST: Clear to auscultation. HEART: S1 and S2 regular. ABDOMEN: Soft. EXTREMITIES: Clubbing and cyanosis negative. LABORATORY DATA: WBC 12, hemoglobin 13, hematocrit 39.4, platelet count 248. Chemistry shows sodium 140, potassium 4.2, chloride 101, carbon dioxide 31, anion gap of 12, BUN 16, creatinine 0.8. TSH is 1.21. Total triglycerides 74, cholesterol 135, LDL 56, HDL 56. Troponin remains negative. Patient underwent a stress test that showed no reversible ischemia, ejection fraction 53%, probably negative scan. Patient had an echocardiography done, that showed ejection fraction 55%-60%, mild aortic regurgitation, [id number] valvular aortic stenosis, mild mitral regurgitation, mild tricuspid regurgitation. IMPRESSION: A 76-year-old male with a past medical history significant for coronary artery disease status post percutaneous transluminal coronary angioplasty of left anterior descending at that time in 10/27/2014, two years ago, admitted with some chest discomfort and feeling not good, found to be in atrial fibrillation/flutter, new onset. Patient underwent a stress test that is negative for ischemia. Echo shows [id number] aortic stenosis. By catheterization, patient had a gradient of 15 mm two years ago. RECOMMENDATIONS: Started on Eliquis, continue amiodarone, continue beta-william, schedule KAMRAN cardioversion in 2 weeks. If patient remains in AFib, we will do cardioversion, at that time, also measure the severity of aortic stenosis. If aortic stenosis is mild, we will continue medical treatment. If aortic stenosis is [id number], consider TAVR evaluation. Discussed with the patient and patient's . We will follow with you. The patient is okay to be discharged. The patient is scheduled for KMARAN cardioversion in 2 weeks as an outpatient. Further recommendation of the KAMRAN cardioversion as mentioned. If the patient has severe aortic stenosis, consider with the TAVR, otherwise treat medically. Endy Pitt MD
--- NOTE | 2017-02-06 14:00 | CP.PCM.DIS ---
<Valerie Pedersen - Last Filed: 02/06/17 15:24> Provider - Provider Date of Admission: 02/05/17 07:11 Attending physician: Rahul Kenney MD Time Spent in preparation of Discharge (in minutes): 35 Hospital Course - Lab Results Lab Results: Most Recent Lab Values WBC 12.0 10^3/ul (4.5-11.0) H 02/06/17 06:18 RBC 4.46 10^6/uL (3.5-6.1) 02/06/17 06:18 Hgb 13.4 g/dL (14.0-18.0) L 02/06/17 06:18 Hct 39.4 % (42.0-52.0) L 02/06/17 06:18 MCV 88.3 fl (80.0-105.0) 02/06/17 06:18 MCH 30.0 pg (25.0-35.0) 02/06/17 06:18 MCHC 34.0 g/dl (31.0-37.0) 02/06/17 06:18 RDW 13.7 % (11.5-14.5) 02/06/17 06:18 Plt Count 248 10^3/uL (120.0-450.0) 02/06/17 06:18 MPV 10.0 fl (7.0-11.0) 02/06/17 06:18 Gran % 74.0 % (50.0-68.0) H 02/06/17 06:18 Lymph % (Auto) 15.3 % (22.0-35.0) L 02/06/17 06:18 [place] % (Auto) 10.3 % (1.0-6.0) H 02/06/17 06:18 Eos % (Auto) 0.2 % (1.5-5.0) L 02/06/17 06:18 Baso % (Auto) 0.2 % (0.0-3.0) 02/06/17 06:18 Gran # 8.92 (1.4-6.5) H 02/06/17 06:18 Lymph # 1.8 (1.2-3.4) 02/06/17 06:18 [place] # 1.2 (0.1-0.6) H 02/06/17 06:18 Eos # 0.0 (0.0-0.7) 02/06/17 06:18 Baso # 0.02 K/mm3 (0.0-2.0) 02/06/17 06:18 PT 11.3 Seconds (9.9-11.8) 02/05/17 05:35 INR 1.05 (0.93-1.08) 02/05/17 05:35 APTT 28.7 Seconds (23.7-30.8) 02/05/17 05:35 Sodium 140 mmol/L (132-148) 02/06/17 06:18 Potassium 4.2 mmol/L (3.6-5.0) 02/06/17 06:18 Chloride 101 mmol/L (98-107) 02/06/17 06:18 Carbon Dioxide 31 mmol/L (21-33) 02/06/17 06:18 Anion Gap 12 (10-20) 02/06/17 06:18 BUN 16 mg/dL (7-21) 02/06/17 06:18 Creatinine 0.8 mg/dL (0.8-1.5) 02/06/17 06:18 Est GFR ( Amer) > 60 02/06/17 06:18 Est GFR (Non-Af Amer) > 60 02/06/17 06:18 POC Glucose (mg/dL) 153 mg/dL (65-110) H 02/05/17 22:45 Random Glucose 131 mg/dL (70-110) H 02/06/17 06:18 Hemoglobin A1c 5.5 % (4.2-6.5) 02/06/17 06:18 Calcium 9.2 mg/dL (8.4-10.5) 02/06/17 06:18 Phosphorus 2.9 mg/dL (2.5-4.5) 02/06/17 06:18 Magnesium 2.1 mg/dL (1.7-2.2) 02/06/17 06:18 Total Bilirubin 1.2 mg/dL (0.2-1.3) 02/06/17 06:18 AST 26 U/L (17-59) 02/06/17 06:18 ALT 25 U/L (7-56) 02/06/17 06:18 Alkaline Phosphatase 60 U/L (38-126) 02/06/17 06:18 Lactate Dehydrogenase 374 U/L (333-699) 02/05/17 05:35 Total Creatine Kinase 62 U/L (35-230) 02/05/17 05:35 Troponin I 0.02 ng/mL 02/06/17 00:10 Total Protein 6.9 g/dL (5.8-8.3) 02/06/17 06:18 Albumin 4.0 g/dL (3.0-4.8) 02/06/17 06:18 Globulin 2.9 gm/dL 02/06/17 06:18 Albumin/Globulin Ratio 1.4 (1.1-1.8) 02/06/17 06:18 Triglycerides 74 mg/dL (35-160) 02/06/17 06:18 Cholesterol 135 mg/dL (130-200) 02/06/17 06:18 LDL Cholesterol Direct 56 mg/dL (0-129) 02/06/17 06:18 HDL Cholesterol 56 mg/dL (29-60) 02/06/17 06:18 TSH 3rd Generation 1.21 mIU/mL (0.46-4.68) 02/06/17 06:18 - Hospital Course Hospital Course: PGY-[address] Kenney 76 yo male with past medical history of coronary artery disease with stent, HTN , diabetes type 2, moderate aortic stenosis presents with chest pain. Patient was found to have new onset a. flutter. He was started on amiodarone and metoprolol for rate control and eliquis for anticoagulation. Stress test was probable normal (refer to full report). Echo showed EF of 55%, moderate to severe aortic stenosis(refer to full report). Cardiology was consulted, scheduled for KAMRAN with possible cardioversion in 2 weeks. Discharge Exam - Head Exam Head Exam: ATRAUMATIC, NORMAL INSPECTION, NORMOCEPHALIC - Eye Exam Eye Exam: EOMI, Normal appearance - Respiratory Exam Respiratory Exam: Clear to PA & Lateral, NORMAL BREATHING PATTERN, UNREMARKABLE. absent: Decreased Breath Sounds, Rales, Rhonchi, Wheezes, Respiratory Distress - Cardiovascular Exam Cardiovascular Exam: REGULAR RHYTHM, +S1, +S2. absent: Tachycardia, Diastolic murmur, Systolic Murmur - GI/Abdominal Exam GI & Abdominal Exam: Soft, Unremarkable. absent: Distended, Firm, Guarding, Normal Bowel Sounds, Tenderness - Extremities Exam Extremities exam: normal inspection - Neurological Exam Neurological exam: Alert, Oriented x3 - Skin Skin Exam: Dry, Intact, Normal Color, Warm Discharge Plan - Discharge Medications Prescriptions: Amiodarone [Cordarone] 200 mg PO TID #90 tab Apixaban [Eliquis] 5 mg PO BID #60 tab Metoprolol Tartrate [Lopressor] 50 mg PO BID #30 tab - Follow Up Plan Condition: STABLE Disposition: HOME/ ROUTINE Additional Instructions: If chest pain, shoulder epigastric pain, or pain radiating down your arms occur please call 911 or visit local ED. Follow up with Dr. Kenney and Dr Pitt in 1 week. <Rahul Kenney - Last Filed: 02/06/17 17:48> Provider - Provider Date of Admission: 02/05/17 07:11 Attending physician: Rahul Kenney MD Hospital Course - Lab Results Lab Results: Most Recent Lab Values WBC 12.0 10^3/ul (4.5-11.0) H 02/06/17 06:18 RBC 4.46 10^6/uL (3.5-6.1) 02/06/17 06:18 Hgb 13.4 g/dL (14.0-18.0) L 02/06/17 06:18 Hct 39.4 % (42.0-52.0) L 02/06/17 06:18 MCV 88.3 fl (80.0-105.0) 02/06/17 06:18 MCH 30.0 pg (25.0-35.0) 02/06/17 06:18 MCHC 34.0 g/dl (31.0-37.0) 02/06/17 06:18 RDW 13.7 % (11.5-14.5) 02/06/17 06:18 Plt Count 248 10^3/uL (120.0-450.0) 02/06/17 06:18 MPV 10.0 fl (7.0-11.0) 02/06/17 06:18 Gran % 74.0 % (50.0-68.0) H 02/06/17 06:18 Lymph % (Auto) 15.3 % (22.0-35.0) L 02/06/17 06:18 [place] % (Auto) 10.3 % (1.0-6.0) H 02/06/17 06:18 Eos % (Auto) 0.2 % (1.5-5.0) L 02/06/17 06:18 Baso % (Auto) 0.2 % (0.0-3.0) 02/06/17 06:18 Gran # 8.92 (1.4-6.5) H 02/06/17 06:18 Lymph # 1.8 (1.2-3.4) 02/06/17 06:18 [place] # 1.2 (0.1-0.6) H 02/06/17 06:18 Eos # 0.0 (0.0-0.7) 02/06/17 06:18 Baso # 0.02 K/mm3 (0.0-2.0) 02/06/17 06:18 PT 11.3 Seconds (9.9-11.8) 02/05/17 05:35 INR 1.05 (0.93-1.08) 02/05/17 05:35 APTT 28.7 Seconds (23.7-30.8) 02/05/17 05:35 Sodium 140 mmol/L (132-148) 02/06/17 06:18 Potassium 4.2 mmol/L (3.6-5.0) 02/06/17 06:18 Chloride 101 mmol/L (98-107) 02/06/17 06:18 Carbon Dioxide 31 mmol/L (21-33) 02/06/17 06:18 Anion Gap 12 (10-20) 02/06/17 06:18 BUN 16 mg/dL (7-21) 02/06/17 06:18 Creatinine 0.8 mg/dL (0.8-1.5) 02/06/17 06:18 Est GFR ( Amer) > 60 02/06/17 06:18 Est GFR (Non-Af Amer) > 60 02/06/17 06:18 POC Glucose (mg/dL) 153 mg/dL (65-110) H 02/05/17 22:45 Random Glucose 131 mg/dL (70-110) H 02/06/17 06:18 Hemoglobin A1c 5.5 % (4.2-6.5) 02/06/17 06:18 Calcium 9.2 mg/dL (8.4-10.5) 02/06/17 06:18 Phosphorus 2.9 mg/dL (2.5-4.5) 02/06/17 06:18 Magnesium 2.1 mg/dL (1.7-2.2) 02/06/17 06:18 Total Bilirubin 1.2 mg/dL (0.2-1.3) 02/06/17 06:18 AST 26 U/L (17-59) 02/06/17 06:18 ALT 25 U/L (7-56) 02/06/17 06:18 Alkaline Phosphatase 60 U/L (38-126) 02/06/17 06:18 Lactate Dehydrogenase 374 U/L (333-699) 02/05/17 05:35 Total Creatine Kinase 62 U/L (35-230) 02/05/17 05:35 Troponin I 0.02 ng/mL 02/06/17 00:10 Total Protein 6.9 g/dL (5.8-8.3) 02/06/17 06:18 Albumin 4.0 g/dL (3.0-4.8) 02/06/17 06:18 Globulin 2.9 gm/dL 02/06/17 06:18 Albumin/Globulin Ratio 1.4 (1.1-1.8) 02/06/17 06:18 Triglycerides 74 mg/dL (35-160) 02/06/17 06:18 Cholesterol 135 mg/dL (130-200) 02/06/17 06:18 LDL Cholesterol Direct 56 mg/dL (0-129) 02/06/17 06:18 HDL Cholesterol 56 mg/dL (29-60) 02/06/17 06:18 TSH 3rd Generation 1.21 mIU/mL (0.46-4.68) 02/06/17 06:18 - Hospital Course Hospital Course: Pt seen and examined. Agree with above note of certified medical biller. Labs and meds reviewed. I reviewed the note of the data quality consultant (Cardiology) on the case. Pt to f/u with Dr Pitt. Will need cardioversion. On Eliquis and Amiodarone for A flutter.
== END 2017-02-06 13:53 | disposition home or self-care (01) ==
LOC: ED 05:25 → ERH 07:11 → INTOOBSV 07:11 → ERH 07:45 → 2RNO 08:25
PROVIDERS: ADMIT Internal Medicine Nephrology; ATTEND Internal Medicine Nephrology
DX: I48.92 Unspecified atrial flutter (principal); I35.0 Nonrheumatic aortic (valve) stenosis; I25.110 Atherosclerotic heart disease of native coronary artery with unstable angina pectoris; I10 Essential (primary) hypertension; E11.9 Type 2 diabetes mellitus without complications; G20 Parkinson's disease; R07.9 Chest pain, unspecified; E66.9 Obesity, unspecified; Z68.31 Body mass index [BMI] 31.0-31.9, adult; E78.5 Hyperlipidemia, unspecified; Z95.5 Presence of coronary angioplasty implant and graft; Z79.84 Long term (current) use of oral hypoglycemic drugs; Z87.891 Personal history of nicotine dependence
CPT/HCPCS: 36415; 71010; 78452; 80053; 80061; 82550; 82948; 83036; 83615; 83735; 84100; 84443; 84484; 85025; 85610; 85730; 93005; 93017; 93306; 96372; 99285; A9502; G0378; J1650

== ENCOUNTER 2017-03-10 09:25 | Day surgery (SDC) | payer MEDICARE, OTHER ==
[2017-02-27 07:46] VITALS: BMI 31.6
[2017-03-10] MEDS ORDERED: Flumazenil 0.1 mg/ml Inj (5ml) IVP ONE (13:58)
[2017-03-10] MEDS ORDERED: Naloxone 0.4 mg/ml Inj (Adult) ONE (13:58)
[2017-03-10] MEDS ORDERED: Midazolam 2 MG/2 ML VIAL ONE (13:58)
[2017-03-10] MEDS ORDERED: Midazolam 2 MG/2 ML VIAL IV ONE ×3 (14:17→14:33)
[2017-03-10] MEDS ORDERED: Sodium Chloride 0.9% 1,000 ML IV SCH (15:00)
[2017-03-10 16:15] VITALS: RESP 18; TEMP 97.9
--- NOTE | 2017-03-10 16:16 | CARD ---
APPROVED REPORT EXAM: Transesophageal echocardiogram with color flow Doppler and Synchronized Cardioversion. INDICATION Atrial Fibrillation 2D DIMENSIONS Left Atrium (2D)5.0 (1.6-4.0cm)LVOT Diameter2.4 (1.8-2.4cm) Aortic Valve AoV Peak Ctfqlolw518.0cm/sAoV VTI75.5cmAO Peak GR.57mmHg LVOT Peak Cdfdriie36.2cm/sLVOT VTI14.20cmAO Mean GR.31mmHg SUZETTE (VMAX)0.02gr6INI (VTI)0.85cm2 Mitral Valve E/A ratio0.0 TDI E/Lateral E'0.0E/Medial E'0.0 Tricuspid Valve TR Peak Rrwaicfw008dx/sRAP MULGYYLI68qvQdVG Peak Gr.32mmHg [id number] Reason For Test : KAMRAN befpre cardioversion PROCEDURE After obtaining informed consent, patient underwent transesophageal echo in the Echo Lab. Type of Sedation : Conscious Sedation Sedation was administered by Dr. yeung. Sedation was achieved with Versed and , Fentanyl 3 mg and 150 mcg intravenously. Transesophageal probe was inserted and advanced into esophagus without difficulty. Echo enhancement indication: R/O Septal defect. Echo enhancement agent administered: Agitated Saline The KAMRAN was performed without complications. Synchronized Cardioversion attempted: Successful Synchronized Cardioversion acheived with 200 Joules after first attempt(s). Rhythm following Synchronized Cardioversion: Normal Sinus Rhythm Throughout the procedure, the blood pressure, pulse oximetry, cardiac rhythm, and rate were monitored. The patient tolerated the procedure without adverse effects. Recovery from conscious sedation was uneventful and vital signs were stable. LEFT VENTRICLE The left ventricle is normal size. There is mild concentric left ventricular hypertrophy. Left ventricle systolic function is mildly impaired.EF-45% ( a fib) There is normal LV segmental wall motion. A fib No left ventricle thrombus noted on this study. There is no ventricular septal defect visualized. There is no left ventricular aneurysm. There is no mass noted in the left ventricle. RIGHT VENTRICLE The right ventricle is mildly dilated. There is normal right ventricular wall thickness. Systolic function is mildly reduced. ATRIA The left atrium is moderately dilated. The right atrium is moderately dilated. The interatrial septum is intact with no evidence for an atrial septal defect. AORTIC VALVE The aortic valve is moderately to severely calcified. There is mild to moderate aortic regurgitation. There is severe valvular aortic stenosis. There is no aortic valvular vegetation. MITRAL VALVE Mitral annular calcification is mild. There is no evidence of mitral valve prolapse. There is no mitral valve stenosis. Mitral regurgitation is moderate. TRICUSPID VALVE The tricuspid valve leaflets display thickening. There is mild tricuspid regurgitation.RVSP-42 mmof Hg There is no tricuspid valve prolapse or vegetation. There is no tricuspid valve stenosis. PULMONIC VALVE The pulmonary valve is normal in structure. There is trace pulmonic valvular regurgitation. There is no pulmonic valvular stenosis. GREAT VESSELS The aortic root is normal in size. The ascending aorta is normal in size. The pulmonary artery is normal. The IVC is normal in size and collapses >50% with inspiration. PERICARDIAL EFFUSION There is a trace pericardial effusion. There is no pleural effusion. <Conclusion> The left ventricle is normal size. There is mild concentric left ventricular hypertrophy. Left ventricle systolic function is mildly impaired.EF-45% ( a fib) There is normal LV segmental wall motion. Bi atrial enlargement. There is mild to moderate aortic regurgitation. There is severe valvular aortic stenosis. There is no evidence of mitral valve prolapse. There is mild tricuspid regurgitation.RVSP-42 mmof Hg There is a trace pericardial effusion. Velocity in NAM more diego 0.5 m/s Mild plaque in descending aorta No Contar indication to Cardioversion noted, 200 Joules Synchronized Cardioversion done .pt converted to NSR.
[2017-03-10 17:19] VITALS: BP 123/70
[2017-03-10 17:20] VITALS: PULSE 40; O2SAT 124
--- NOTE | 2017-03-11 10:07 | CARD ---
APPROVED REPORT EKG Measurement Heart [id number] <Conclusion> Marked sinus bradycardia with 1st degree AV block, new, s/p cardioversion ST & T wave abnormality, consider lateral ischemia Markedly prolonged QT
== END 2017-03-10 17:30 | disposition home or self-care (01) ==
LOC: TEE 09:25
PROVIDERS: ATTEND Internal Medicine Cardiovascular Disease
DX: I48.91 Unspecified atrial fibrillation (principal); I08.2 Rheumatic disorders of both aortic and tricuspid valves; I31.3 Pericardial effusion (noninflammatory); I44.0 Atrioventricular block, first degree
CPT/HCPCS: 92960; 93312; J2250; J3010; J7040

== ENCOUNTER 2017-04-24 05:58 | Day surgery (SDC) | payer MEDICARE, OTHER ==
[2017-04-18 14:49] VITALS: BMI 31.3
--- NOTE | 2017-04-23 21:20 | HP ---
REASON FOR ADMISSION: Left and right heart cath, possible angioplasty, and the preparation for aortic valve replacement. BRIEF CLINICAL HISTORY: This is a 76-year-old male with past medical history significant for coronary artery, status post PTCA, new onset of AFib, status post KAMRAN cardioversion on 03/10/2017 and reversed back to AFib. Echo and KAMRAN shows severe aortic stenosis. The patient is scheduled for elective left heart and right heart catheterization, possible angioplasty as well as for aortic valve replacement versus TAVR evaluation. PAST MEDICAL HISTORY: Significant for hypertension, hyperlipidemia, Parkinson's disease, and aortic stenosis. PREVIOUS CARDIAC WORKUP: As follows: The patient had a cardiac catheterization and stenting of mid LAD with SHAGGY dated 10/27/2014. At that time, EDP was found to be 20 to 25 and moderate aortic stenosis, zbam-qw-gchm gradient 20 mmHg was noted. The patient had recently transesophageal echo on 03/10/2017 was done that shows aortic valve severely calcified, [id number]-[id number] aortic regurgitation, severe valvular aortic stenosis, ejection fraction of 45%, and mild TR with systolic pressure of 42. At that time, cardioversion was done, but the patient did not remain in sinus, later on converted to normal sinus. Most recently, stress test shows fixed defect, no reversible ischemia when compared last study 05/01/2015, no significant changes, and ejection fraction reported 53%. CURRENT MEDICATIONS: The patient is taking carbidopa, lisinopril 20 mg daily, furosemide 40 mg daily, potassium 10 mEq daily, and Eliquis 5 mg b.i.d., last dose of Eliquis was held on 2 days ago. REVIEW OF SYSTEMS: As per . ALLERGIES: NO KNOWN DRUG ALLERGIES. PHYSICAL EXAMINATION: VITAL SIGNS: Height of the patient 5 feet 7 inches and weight of the patient is 200 pounds. Body mass index 31.3 kg/m2. Blood pressure 130/80 and heart rate 67. HEENT: PERRLA. Extraocular muscles intact. NECK: Supple. No carotid bruit, JVD, or thyromegaly. CHEST: Clear to auscultation. HEART: S1 and S2 regular. ABDOMEN: Soft. EXTREMITIES: Clubbing and cyanosis negative. IMPRESSION: Aortic stenosis, atrial fibrillation, failed transesophageal echocardiography cardioversion, history of coronary artery disease, status post percutaneous transluminal coronary angioplasty of mid left anterior descending artery in 2014 with drug-eluting stents of the mid left anterior descending artery on 10/27/2014. RECOMMENDATIONS: We will do left and right heart catheterization, calculate the valve area. Further recommendations to have the cardiac catheterization, stressed the severity of the aortic stenosis. Thank you Dr. Kenney/ for providing us the opportunity in taking care of the patient, Nickolas Zheng. Endy Pitt MD
[2017-04-24 07:05] LABS: BASO # 0.02 K/mm3 (0.0-2.0); BASO % 0.3 % (0.0-3.0); EOS # 0.1 (0.0-0.7); EOS % 0.9 % (1.5-5.0); GRAN # 4.74 (1.4-6.5); GRAN % 59.2 % (50.0-68.0); HEMOGLOBIN 13.9 g/dL (14.0-18.0); LYMPH # 2.5 (1.2-3.4); LYMPH % 31.7 % (22.0-35.0); MEAN CELL VOLUME 87.6 fl (80.0-105.0); MEAN CORPUSCULAR HEMOGLOBIN 29.6 pg (25.0-35.0); MEAN CORPUSCULAR HGB CONC 33.8 g/dl (31.0-37.0); MONO # 0.6 (0.1-0.6); MONO % 7.9 % (1.0-6.0); RBC 4.69 10^6/uL (3.5-6.1); RED CELL DISTRIBUTION WIDTH 15.3 % (11.5-14.5)
[2017-04-24 07:18] LABS: BLOOD UREA NITROGEN 20 mg/dL (7-21); CALCIUM 9.7 mg/dL (8.4-10.5); GFR AFRICAN-AMERICAN > 60; GFR NON-AFRICAN AMERICAN > 60; HDL CHOLESTEROL 74 mg/dL (29-60)
[2017-04-24] MEDS ORDERED: Lidocaine 2% Inj (20ml) ONE (07:19)
[2017-04-24] MEDS ORDERED: HEPARIN SODIUM/NS 2,000 ML IV ONE (07:20)
[2017-04-24] MEDS ORDERED: Nitroglycerin 50mg in D5W 0 MG/0 ML BOTTLE IV ONE (07:21)
[2017-04-24] MEDS ORDERED: Phenylephrine 10 mg/ml Inj ONE (07:21)
[2017-04-24] MEDS ORDERED: Iodixanol 320 MG/ML 200 ML BOTTLE IV ONE (07:25)
[2017-04-24] MEDS ORDERED: Iohexol 350mgl/ml 50 ML ONE (07:25)
[2017-04-24] MEDS ORDERED: Iodixanol 320 MG/ML 100 ML BOTTLE IV ONE (07:25)
[2017-04-24 07:29] LABS: LDL CHOLESTEROL 161 mg/dL (0-129)
[2017-04-24] MEDS ORDERED: Midazolam 2 MG/2 ML VIAL ONE (07:30)
[2017-04-24 07:43] LABS: PARTIAL THROMBOPLASTIN TIME 26.7 Seconds (25.1-36.5); PROTHROMBIN TIME 11.5 SECONDS (9.4-12.5)
[2017-04-24] MEDS ORDERED: Eptifibatide 20 mg/10mL Inj IVP ONE (08:14)
[2017-04-24] MEDS ORDERED: Sodium Chloride 0.9% 1,000 ML IV SCH (09:15)
[2017-04-24 09:37] VITALS: RESP 18; TEMP 97.6; O2SAT 98
[2017-04-24 14:30] VITALS: BP 160/82; PULSE 66
--- NOTE | 2017-04-25 09:54 | CARD ---
APPROVED REPORT Procedure(s) performed: Complete Heart Catheterization HISTORY The patient is a 76 year-old male with a history of : hypertension , severe by KAMRAN. INDICATION The indication(s) include : dyspnea, valvular heart disease. CASE TECHNIQUE The patient was brought electively to the Cardiac Catheterization Laboratory in a fasting state and was prepped and draped in a sterile manner. The right femoral groin was infiltrated with 2% Lidocaine subcutaneous anesthesia. A sheath was inserted into the right femoral artery without difficulty. Coronary angiography was performed using coronary diagnostic catheters. The left coronary system was accessed and visualized with a Diagnostic ,JL 4.0 catheter. The right coronary system was accessed and visualized with a Diagnostic ,JR JR catheter. The left ventricle was accessed and visualized with a pig tyail catheter. Left ventricular/Aortic Valve gradient assessed on pullback. Left ventriculogram was performed in YODER projection. Closure device was deployed with a 6 Fr Mynx without any complications. The patient tolerated the procedure well and there were no complications associated with the procedure. Vessel Analysis The patient's coronary anatomy is left dominant. The left main bifurcates to the left anterior descending and circumflex. The left anterior descending artery is a medium size vessel with diffuse calcification noted throughout this vessel and without significant stenosis. patent stent in proximal stent The first diagonal branch is a small size vessel with diffuse calcification noted throughout this vessel and without significant stenosis. The second diagonal branch is a small size vessel with diffuse calcification noted throughout this vessel and without significant stenosis. The circumflex artery is a large size vessel with diffuse calcification noted throughout this vessel and without significant stenosis. There is a 90% stenosis in the very distal segment. The first obtuse marginal branch is a small size vessel with diffuse calcification noted throughout this vessel and without significant stenosis. The second obtuse marginal branch is a medium size vessel with diffuse calcification noted throughout this vessel and without significant stenosis. The third obtuse marginal branch is a medium size vessel with diffuse calcification noted throughout this vessel and without significant stenosis. The left posterior descending artery is a medium size vessel with diffuse calcification noted throughout this vessel and without significant stenosis. The right coronary artery is a small size vessel with diffuse calcification noted throughout this vessel and with significant stenosis. There is a 100% stenosis in the proximal segment. Left Ventricle The left ventricle is mildly enlrged in size with mildy decreased contractility. Non-Ischemic cardiomyopathy. The left ventricular ejection fraction is estimated to be 45-50%. The left ventricular end diastolic pressure is 14 mmHg. 30 mm gradient on pull back across aortic valve. Right Heart Cath Findings The Right Atrial Pressure is 6-7 mmHg. The Right Ventricular Pressure is 45/6-7 mmHg. The Pulmonary Artery Pressure is 44/19 mmHg. mean gradient 27 The Pulmonary Catheter Wedge Pressure is 12 mmHg. PVR 2.75 Wood units. The cardiac output and index were assessed using thermo dilution. The Cardiac Output is 4.00 L/min. The Cardiac index is 1.93 L/min/m2. Valves The peak gradient across the aortic valve is 30 mmHg. Aortic stenosis is present. The aortic valve area is 0.72 cm2. Conclusion patent stent in LAD Non dominant RCA proximally occluded Very dislal circumflex 90%, small vessel not suitable for PCI. Severe SUZETTE 0.72 cm2. RHC;RA-6-7,RV-45/6-7, PA-44/19, with a mean of 27. PCW-12, Co-4.0. CI-1.93 bt TD, PVR-2.75 bowman unit Recommendations CTS Eval for TAVR Vs AVR at [facility]. CC; drs. Myla adler/ [place].
== END 2017-04-24 14:15 | disposition home or self-care (01) ==
LOC: CATH 05:58
PROVIDERS: ATTEND Internal Medicine Cardiovascular Disease
DX: I25.10 Atherosclerotic heart disease of native coronary artery without angina pectoris (principal); E78.5 Hyperlipidemia, unspecified; I10 Essential (primary) hypertension; G20 Parkinson's disease; I35.0 Nonrheumatic aortic (valve) stenosis; I42.9 Cardiomyopathy, unspecified; I48.91 Unspecified atrial fibrillation; Z79.01 Long term (current) use of anticoagulants; Z95.5 Presence of coronary angioplasty implant and graft; Z01.810 Encounter for preprocedural cardiovascular examination; Z68.31 Body mass index [BMI] 31.0-31.9, adult
CPT/HCPCS: 36415; 80048; 80061; 85025; 85610; 85730; 86850; 86900; 93460; 93567; 99152; 99153; C1760; C1769 ×2; C1894; C2629; J1644; J2250; J3010; J7030; J7040; Q9967 ×2

== ENCOUNTER 2017-09-24 08:44 | Emergency (ER) | payer MEDICARE, OTHER ==
[2017-09-24 08:44] VITALS: BMI 31.3
[2017-09-24 09:38] VITALS: TEMP 98.1
--- NOTE | 2017-09-24 09:43 | ED PDOC ---
Arrival/HPI - General Chief Complaint: Abnormal Skin Integrity Time Seen by Provider: 09/24/17 09:42 Historian: Patient - History of Present Illness Narrative History of Present Illness (Text): 09/24/17 09:42 This 77 year old male, whose past medical history includes diabetes, hypertension, CHF, s/p coronary stent x 2, and afib, presents to the emergency department via EMS for dizziness, and head laceration x [facility]. Patient stated while shaving, he felt dizzy causing to fall. He said he found himself on the floor, with bleeding from left side of scalp. Patient stated that he 'must had a syncope", since he has nor recollection how he got on the floor. Patient denies other somatic complains at this time. He denies chest pain, or shortness of breath. Last Tetanus was < 5 years Time/Duration: Prior to Arrival Context: Home Past Medical History - Provider Review Nursing Documentation Reviewed: Yes - Past History Past History: Non-Contributing - Infectious Disease Hx of Infectious Diseases: None - Tetanus Immunization Tetanus Immunization: Unknown - Cardiac Hx Cardiac Disorders: No Hx Pacemaker: No - Pulmonary Hx Respiratory Disorders: No - Neurological Hx Paralysis: No - HEENT Hx HEENT Disorder: No - Renal Hx Renal Disorder: No - Endocrine/Metabolic Hx Diabetes Mellitus Type 2: Yes - Hematological/Oncological Hx Blood Transfusions: No - Integumentary Hx Dermatological Disorder: No - Musculoskeletal/Rheumatological Hx Musculoskeletal Disorders: Yes - Gastrointestinal Hx Gastrointestinal Disorders: No - Genitourinary/Gynecological Hx Genitourinary Disorders: No - Psychiatric Hx Emotional Abuse: No Hx Physical Abuse: No Hx Substance Use: No - Surgical History Hx Coronary Stent: Yes (10/2014) - Anesthesia Hx Anesthesia Reactions: No Hx Malignant Hyperthermia: No - Suicidal Assessment Feels Threatened In Home Enviroment: No Family/Social History - Physician Review Nursing Documentation Reviewed: Yes Family/Social History: Other (noncontributory) Smoking Status: Never Smoked Hx Alcohol Use: No Hx Substance Use: No Hx Substance Use Treatment: No Allergies/Home Meds Allergies/Adverse Reactions: Allergies No Known Allergies Allergy (Verified 02/05/17 05:32) Home Medications: Home Meds Medication Instructions Recorded Confirmed Carbidopa/Levodopa 1 tab PO TID 10/25/14 09/24/17 [Carbidopa-Levodopa 10-100 Tab] Rasagiline Mesylate [Azilect] 1 mg PO DAILY 02/10/17 09/24/17 Furosemide [Lasix] 40 mg PO DAILY 02/27/17 09/24/17 Potassium Chloride [Klor-Con 10] 10 meq PO DAILY 02/27/17 09/24/17 Lisinopril [Zestril] 20 mg PO DAILY 04/18/17 09/24/17 Apixaban [Eliquis] 5 mg PO BID 04/24/17 09/24/17 Review of Systems - Review of Systems Constitutional: Normal. absent: Fatigue, Weight Change, Fevers, Night Sweats Eyes: Normal ENT: Normal. absent: Sore Throat Respiratory: Normal. absent: SOB, Cough Cardiovascular: Syncope. absent: Chest Pain, Palpitations, Edema, Calf Pain, WEEKS, Orthopnea Gastrointestinal: Normal. absent: Abdominal Pain, Nausea, Vomiting Genitourinary Male: Normal. absent: Dysuria, Frequency, Hematuria Musculoskeletal: Normal Skin: Laceration (scal laceration). absent: Rash Neurological: Dizziness, Other ((+) syncope). absent: Headache, Focal Weakness , Gait Changes, Speech Changes, Disequilibrium, Seizure Endocrine: Normal Hemo/Lymphatic: Normal Psychiatric: Normal Physical Exam Vital Signs Temp Pulse Resp BP Pulse Ox 09/24/17 12:48 98.1 F 69 18 135/79 99 09/24/17 12:10 69 18 135/79 99 09/24/17 11:00 75 18 138/86 98 09/24/17 09:34 98.1 F 77 17 143/92 H 98 09/24/17 09:11 98.3 F 74 18 125/70 98 Temperature: Afebrile Blood Pressure: Normal Pulse: Regular Respiratory Rate: Normal Appearance: Positive for: Well-Appearing, Non-Toxic, Comfortable Pain Distress: None Mental Status: Positive for: Alert and Oriented X 3 - Systems Exam Head: Present: Atraumatic, Normocephalic Pupils: Present: PERRL Extroacular Muscles: Present: EOMI Conjunctiva: Present: Injected Mouth: Present: Moist Mucous Membranes Neck: Present: Normal Range of Motion. No: Meningeal Signs, MIDLINE TENDERNESS Respiratory/Chest: Present: Clear to Auscultation, Good Air Exchange. No: Respiratory Distress, Accessory Muscle Use Cardiovascular: Present: Regular Rate and Rhythm, Normal S1, S2. No: Murmurs Abdomen: No: Tenderness, Distention, Peritoneal Signs Back: Present: Normal Inspection. No: CVA Tenderness Upper Extremity: Present: Normal Inspection, Normal ROM, NORMAL PULSES, Neurovascularly Intact. No: Cyanosis, Edema Lower Extremity: Present: Normal Inspection, Normal ROM, Neurovascularly Intact , Capillary Refill < 2 s. No: Edema Neurological: Present: GCS=15, CN II-XII Intact, Speech Normal Skin: Present: Warm, Dry, Normal Color. No: Rashes Psychiatric: Present: Alert, Oriented x 3, Normal Insight, Normal Concentration Medical Decision Making ED Course and Treatment: 09/24/17 12:13 Leaving Against Medical Advice (AMA): This patient is choosing to leave against medical advice. I have personally explained to the patient that choosing to do so may result in permanent bodily harm or . I have discussed at great length that without further evaluation and monitoring there may be unforeseen circumstances and/or deterioration causing permanent bodily harm or as a result of their choice. The patient is alert, oriented, and shows the mental capacity to make clear decisions regarding the patients health care at this time. The patient continues to wish to leave against medical advice. In light of the patients decision to leave AMA, follow-up has been recommended and the patient is aware of the importance of following up as instructed. The patient has been advised that they should return to the ED immediately if they change their mind at any time, or if their condition begins to change or worsen in any way. 09/24/17 12:13 I had recommended to stay in the hospital for observation. Patient stated he is better. Denies any somatic complain at this time. Patient stated his called him, and she said that he tripped an fell down causing his injury. I still recommended patient to stay in hospital for observation, but he prefers to sign AMA. Patient understood risk of worsening of problems including , permanent disability, chronic suffering. He still wants to leave AMA. Patient eleuterio laert and oriented x 3. He understand the risk, but he wants to leave since he is asymptomatic. Patient recommended to have staple removed in 7 days. Re-evaluation Time: 12:13 Reassessment Condition: Re-examined, Improved - Lab Interpretations Lab Results: 09/24/17 10:30 09/24/17 10:30 Lab Results 09/24/17 10:30: Sodium 142, Chloride 101, Potassium 4.7, Carbon Dioxide 30, Anion Gap 15, BUN 15, Creatinine 0.9, Est GFR ( Amer) > 60, Est GFR (Non- Af Amer) > 60, Random Glucose 129 H, Calcium 9.6, Magnesium 2.1, Total Bilirubin 1.1, AST 21, ALT 25, Alkaline Phosphatase 80, Lactate Dehydrogenase 484, Total Creatine Kinase 53, Troponin I < 0.01 D, NT-Pro-B Natriuret Pep 643 H, Total Protein 7.8, Albumin 4.5, Globulin 3.3, Albumin/Globulin Ratio 1.4 09/24/17 10:30: pO2 39, VBG pH 7.32, VBG pCO2 62.0 H, VBG HCO3 31.9 H, VBG Total CO2 33.8 H, VBG O2 Sat (Calc) 76.0 H, VBG Base Excess 4.0 H, VBG Potassium 4.6, Sodium 138.0, Chloride 103.0, Glucose 137 H, Lactate 1.4, FiO2 21.0, Venous Blood Potassium 4.6 09/24/17 10:30: Urine Color Yellow, Urine Appearance Sl cloudy, Urine pH 6.0, Ur Specific Ackley 1.015, Urine Protein Negative, Urine Glucose (UA) Negative, Urine Ketones Negative, Urine Blood Large H, Urine Nitrate Negative, Urine Bilirubin Negative, Urine Urobilinogen 0.2, Ur Leukocyte Esterase Trace H, Urine RBC 25 - 30, Urine WBC 2 - 5, Ur Epithelial Cells None, Urine Bacteria Many 09/24/17 10:30: WBC 10.7 D, RBC 5.25, Hgb 15.7, Hct 45.7, MCV 87.0, MCH 29.9, MCHC 34.4, RDW 13.7, Plt Count 235, MPV 10.0, Gran % 76.3 H, Lymph % (Auto) 15.7 L, [place] % (Auto) 7.7 H, Eos % (Auto) 0.1 L, Baso % (Auto) 0.2, Gran # 8.16 H, Lymph # (Auto) 1.7, [place] # (Auto) 0.8 H, Eos # (Auto) 0.0, Baso # (Auto) 0.02 I have reviewed the lab results: Yes Interpretation: Abnormal lab values (possible UTI, mild elevated BNP) - RAD Interpretation Narrative RAD Interpretations (Text): 09/24/17 12:20 PROCEDURE: CT HEAD WITHOUT CONTRAST. HISTORY: Head trauma, dizziness COMPARISON: 03/14/2017 TECHNIQUE: Axial computed tomography images were obtained through the head/brain without intravenous contrast. Radiation dose: Total exam DLP = 864 mGy-cm. This CT exam was performed using one or more of the following dose reduction techniques: Automated exposure control, adjustment of the mA and/or kV according to patient size, and/or use of iterative reconstruction technique. FINDINGS: HEMORRHAGE: No intracranial hemorrhage. BRAIN: No mass effect or edema. No atrophy or chronic microvascular ischemic changes. VENTRICLES: Unremarkable. No hydrocephalus. CALVARIUM: Unremarkable. PARANASAL SINUSES: Unremarkable as visualized. No significant inflammatory changes. MASTOID AIR CELLS: Unremarkable as visualized. No inflammatory changes. OTHER FINDINGS: None. IMPRESSION: No acute findings 09/24/17 12:21 HISTORY: syncope COMPARISON: 03/14/2017 FINDINGS: LUNGS: No active pulmonary disease. PLEURA: No significant pleural effusion identified, no pneumothorax apparent. CARDIOVASCULAR: Mild cardiomegaly OSSEOUS STRUCTURES: No significant abnormalities. VISUALIZED UPPER ABDOMEN: Normal. OTHER FINDINGS: None. IMPRESSION: No active disease. Radiology Orders: 09/24/17 09:42 HEAD W/O CONTRAST [CT] Stat 09/24/17 09:52 CHEST PORTABLE [RAD] Stat - EKG Interpretation Interpreted by ED Physician: Yes (A-flutter @ [address] changes) Type: 12 lead EKG Comparison: Similar to previous EKG - Medication Orders Current Medication Orders: Discontinued Medications Tobramycin Sulfate (Tobrex 0.3% [facility] Soln) 1 drop OS STAT STA Stop: 09/24/17 09:59 Last Admin: 09/24/17 11:11 Dose: 1 drop Disposition/Present on Arrival - Present on Arrival Any Indicators Present on Arrival: No History of DVT/PE: No History of Uncontrolled Diabetes: Yes Urinary Catheter: No History of Decub. Ulcer: No History Surgical Site Infection Following: None - Disposition Have Diagnosis and Disposition been Completed?: Yes Diagnosis: UTI (urinary tract infection), Syncope, Scalp laceration, Abrasion Disposition: AGAINST MEDICAL ADVICE Disposition Time: 12:26 Patient Plan: Discharge Condition: GOOD Discharge Instructions (ExitCare): Urinary Tract Infection, Adult (DC), Laceration Repair With Kate (DC), Syncope (ED) Additional Instructions: Call private doctor today for revaluation. Return to emergency at anytime, or if symptoms return. Staple needs to be removed in 7 days. Clean wound daily with soap and water. Referrals: Rahul Kenney MD [Primary Care Provider] - Follow up with primary Forms: [employer] ([place])
[2017-09-24] MEDS ORDERED: Tobramycin 0.3% OPHT SOLN OS STA (09:58)
[2017-09-24 10:40] LABS: VENOUS BLOOD GAS PO2 39 mm/Hg (30-55); VENOUS BLOOD PH 7.32 (7.32-7.43)
[2017-09-24 10:43] LABS: URINE BILIRUBIN NEGATIVE (NEGATIVE); URINE BLOOD LARGE (NEGATIVE); URINE GLUCOSE (UA) NEGATIVE (NEGATIVE); URINE LEUKOCYTE ESTERASE TRACE Leu/uL (NEGATIVE); URINE PROTEIN NEGATIVE mg/dL (<30 mg/dL); URINE UROBILINOGEN 0.2 E.U./dL (<1 E.U./dL)
[2017-09-24 10:44] LABS: BASO # 0.02 K/mm3 (0.0-2.0); BASO % 0.2 % (0.0-3.0); EOS % 0.1 % (1.5-5.0); GRAN # 8.16 (1.4-6.5); GRAN % 76.3 % (50.0-68.0); HEMOGLOBIN 15.7 g/dL (14.0-18.0); LYMPH # 1.7 (1.2-3.4); LYMPH % 15.7 % (22.0-35.0); MEAN CORPUSCULAR HEMOGLOBIN 29.9 pg (25.0-35.0); MEAN CORPUSCULAR HGB CONC 34.4 g/dl (31.0-37.0); MONO # 0.8 (0.1-0.6); MONO % 7.7 % (1.0-6.0); RBC 5.25 10^6/uL (3.5-6.1); RED CELL DISTRIBUTION WIDTH 13.7 % (11.5-14.5); URINE APPEARANCE SL CLOUDY (CLEAR); URINE COLOR YELLOW (YELLOW); WHITE BLOOD COUNT 10.7 10^3/ul (4.5-11.0)
[2017-09-24 10:51] LABS: ALB/GLOB RATIO 1.4 (1.1-1.8); ALBUMIN 4.5 g/dL (3.0-4.8); ALT/SGPT 25 U/L (7-56); AST/SGOT 21 U/L (17-59); BLOOD UREA NITROGEN 15 mg/dL (7-21); CALCIUM 9.6 mg/dL (8.4-10.5); GFR AFRICAN-AMERICAN > 60; GFR NON-AFRICAN AMERICAN > 60
[2017-09-24 11:00] LABS: URINE BACTERIA MANY (NEG); URINE RBC 25 - 30 /hpf (0-2)
[2017-09-24 11:03] LABS: B-TYPE NATRIURETIC PEPTIDE 643 pg/mL (0-450); TROPONIN I < 0.01 ng/mL
[2017-09-24 11:12] VITALS: RESP 18
--- NOTE | 2017-09-24 11:19 | CT ---
PROCEDURE: CT HEAD WITHOUT CONTRAST. HISTORY: Head trauma, dizziness COMPARISON: 03/14/2017 TECHNIQUE: Axial computed tomography images were obtained through the head/brain without intravenous contrast. Radiation dose: Total exam DLP = 864 mGy-cm. This CT exam was performed using one or more of the following dose reduction techniques: Automated exposure control, adjustment of the mA and/or kV according to patient size, and/or use of iterative reconstruction technique. FINDINGS: HEMORRHAGE: No intracranial hemorrhage. BRAIN: No mass effect or edema. No atrophy or chronic microvascular ischemic changes. VENTRICLES: Unremarkable. No hydrocephalus. CALVARIUM: Unremarkable. PARANASAL SINUSES: Unremarkable as visualized. No significant inflammatory changes. MASTOID AIR CELLS: Unremarkable as visualized. No inflammatory changes. OTHER FINDINGS: None. IMPRESSION: No acute findings
--- NOTE | 2017-09-24 11:20 | RAD ---
HISTORY: syncope COMPARISON: 03/14/2017 FINDINGS: LUNGS: No active pulmonary disease. PLEURA: No significant pleural effusion identified, no pneumothorax apparent. CARDIOVASCULAR: Mild cardiomegaly OSSEOUS STRUCTURES: No significant abnormalities. VISUALIZED UPPER ABDOMEN: Normal. OTHER FINDINGS: None. IMPRESSION: No active disease.
[2017-09-24 12:28] VITALS: BP 135/79; PULSE 69; O2SAT 99
--- NOTE | 2017-09-24 15:44 | CARD ---
APPROVED REPORT EKG Measurement Heart [id number] <Conclusion> Atrial flutter with variable AV block, new Possible IMI NSSTW changes Prolonged QTc
== END 2017-09-24 12:48 | disposition left against medical advice (07) ==
LOC: ED 08:44
DX: S01.01XA Laceration without foreign body of scalp, initial encounter (principal); W01.190A Fall on same level from slipping, tripping and stumbling with subsequent striking against furniture, initial encounter; Y92.009 Unspecified place in unspecified non-institutional (private) residence as the place of occurrence of the external cause; N39.0 Urinary tract infection, site not specified; R55 Syncope and collapse; I11.0 Hypertensive heart disease with heart failure; I50.9 Heart failure, unspecified; E11.9 Type 2 diabetes mellitus without complications; Z95.5 Presence of coronary angioplasty implant and graft